=== PATIENT | female | born 1990 | race Caucasian/White ===

== ENCOUNTER 2016-08-24 11:26 | Emergency (ER) | payer MEDICAID | END 2016-08-24 19:18 | disposition left against medical advice (07) | LOC: D.ER 11:26 | DX: T14.8 Other injury of unspecified body region (principal) ==

== ENCOUNTER 2020-07-11 06:13 | Emergency (ER) | payer BC ==
[2020-07-11 06:20] VITALS: BP 138/94; Wt 54.5 kg
[2020-07-11 06:46] LABS: BASOPHILS 0.6 % (0-2); EOSINOPHILS 2.9 % (0-7); HEMATOCRIT 37.7 % (36.0-48.0); HEMOGLOBIN 12.9 g/dL (12-16); LYMPHOCYTES 32.4 % (15-50); MCH 31.5 pg (26.0-34.0); MCHC 34.1 g/dL (31.0-37.0); MCV 92.2 fL (80.0-100.0); MEAN PLATELET VOLUME 7.9 fL (7.4-10.4); MONOCYTES 10.9 % (2-11); NEUTROPHILS 53.2 % (40-80); RBC 4.09 10x6/uL (4.00-5.40); RDW 12.2 % (11.5-14.5); WBC 6.9 10x3/uL (4.8-10.8)
[2020-07-11 06:50] LABS: PLATELET COUNT 329 10x3/uL (130-400)
[2020-07-11 07:02] LABS: CALC OSMOLALITY 277 mosm/kg (275-300); CARBON DIOXIDE 26.3 mmol/L (21.0-32.0); CHLORIDE - SERUM 103 mmol/L (98-107); CREATININE - SERUM 0.9 mg/dL (0.6-1.3); GLUCOSE 86 mg/dL (74-106); POTASSIUM - SERUM 3.7 mmol/L (3.5-5.1); SODIUM 139 mmol/L (136-145); UREA NITROGEN 15 mg/dL (7-18); eGFR NON AFRICAN AMERICAN 79 mL/min (90-120)
[2020-07-11 07:07] LABS: BILIRUBIN NEGATIVE (NEGATIVE); KETONE NEGATIVE (NEGATIVE); NITRITE NEGATIVE (NEGATIVE); UROBILINOGEN NORMAL mg/dL (< 2)
[2020-07-11 07:09] LABS: BACTERIA FEW HPF (NONE SEEN); SQUAMOUS EPITHELIAL 0-5 HPF (0-4); WHITE CELLS - URINE 0-5 HPF (0-4)
[2020-07-11 07:10] LABS: HCG URINE NEGATIVE (NEGATIVE)
[2020-07-11 07:13] LABS: UDS - AMPHET POSITIVE QUAL (NEGATIVE); UDS - BARB NEGATIVE QUAL (NEGATIVE); UDS - BENZO POSITIVE QUAL (NEGATIVE); UDS - COCAINE NEGATIVE QUAL (NEGATIVE); UDS - OPIATE NEGATIVE QUAL (NEGATIVE); UDS - PCP NEGATIVE QUAL (NEGATIVE); UDS - THC POSITIVE QUAL (NEGATIVE)
[2020-07-11 07:17] LABS: ALBUMIN 3.9 g/dL (3.4-5.0); ALKALINE PHOSPHATASE 60 U/L (30-120); ALT (SGPT) 23 U/L (10-68); BILIRUBIN - TOTAL 0.49 mg/dL (0.2-1.3); PROTEIN - SERUM 8.1 g/dL (6.4-8.2); THYROID STIMULATING HORMONE 2.08 uIU/mL (0.36-3.74)
--- NOTE | 2020-07-11 08:19 | NUR ---
Per observation and assessment (interview), patient presents with a high risk score on her suicide risk assessment. She has a difficult time with being able to stay awake during interview with this nurse having to redirect her to conversation and then she wakes up and acts nonchalont about "the whole ordeal". She states she thinks physically how to her herself and has a HX of cutting herself "to ease pain" to attempted hanging herself. She has a family HX of suicide. She says she has not ever rec'd inpatient counseling but did receive outpt counseling at [facility] unknown years. She has never been on medication. Spoke with Dr. Loaiza, MELISSA uriostegui, and charge nurse Emily and relayed all information. Rec'd order from Dr Loaiza for suicide watch precautions.
== END 2020-07-11 12:47 ==
LOC: D.ER 06:13
PROVIDERS: Emergency Medicine
DX: F60.3 Borderline personality disorder (principal); F32.9 Major depressive disorder, single episode, unspecified; F19.10 Other psychoactive substance abuse, uncomplicated